=== PATIENT | female | born 2000 | race Caucasian/White ===

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

== ENCOUNTER 2019-04-15 16:54 | Emergency (ER) | payer MEDICAID ==
[~2019-04-15] VITALS: Ht 162.6 cm; Wt 60.0 kg
[~2019-04-15 16:54] MED LIST: BRIV50TA MT; KEPP250 MT
[2019-04-15] MEDS ORDERED: SODIUM CHLORIDE 0.9% 1,000 ML IV ONE (17:12)
[2019-04-15] MEDS ORDERED: LORAZEPAM 2MG/ML CPJ IV ONE ×4 (17:15→21:45)
[2019-04-15 17:26] LABS: BASOPHILS % 0.3 % (0.0-2.0); EOSINOPHILS % 1.9 % (0.0-5.0); HEMATOCRIT. 32.4 % (36.0-48.0); HEMOGLOBIN. 10.4 g/dL (12.0-16.0); LYMPHOCYTES % 20.6 % (20.0-50.0); MEAN CORPUSCULAR HEMOGLOBIN 24.6 pg (28.0-32.0); MEAN CORPUSCULAR VOLUME 76.6 fL (81.0-99.0); MONOCYTES % 9.3 % (2.0-8.0); NEUTROPHILS % 67.9 % (40.0-76.0); PLATELET 251 x1000/uL (130-400); RED BLOOD CELL COUNT 4.23 mill/uL (4.2-5.4); RED CELL DISTRIBUTION WIDTH 15.8 % (11.6-14.6)
[2019-04-15 17:28] LABS: CHLORIDE 108 mEq/L (98-107)
[2019-04-15 17:29] LABS: HCG SCREEN NEGATIVE
[2019-04-15 17:33] LABS: ETHANOL BLOOD < 10 mg/dL
[2019-04-15 17:37] LABS: CREATINE KINASE 67 IU/L (26-192)
[2019-04-15 18:00] LABS: CARBAMAZEPINE < 0.5 ug/mL (4-12); PHENOBARBITAL < 2.1 ug/mL (15.0-40.0); VALPROIC ACID < 3.0 ug/mL (50-100)
[2019-04-15] MEDS ORDERED: LEVETIRACETAM 500MG PREMIX 100 ML IV ONE (18:15)
[2019-04-15 23:51] LABS: CLARITY URINE CLEAR (CLEAR); COLOR URINE YELLOW (YELLOW); KETONES URINE 2+ (NEGATIVE); LEUKOCYTE ESTERASE URINE 1+ (NEGATIVE); NITRITE URINE NEGATIVE (NEGATIVE); OCCULT BLOOD URINE 1+ (NEGATIVE); PROTEIN URINE NEGATIVE (NEGATIVE)
[2019-04-16] MEDS ORDERED: CEFTRIAXONE 1 G PREMIX 50 ML IV ONE (00:15)
[2019-04-16 00:17] LABS: *AMPHETAMINES SCREEN URINE NEGATIVE (NEGATIVE); *BARBITURATES SCREEN URINE NEGATIVE (NEGATIVE); *BENZODIAZEPINES SCREEN URINE NEGATIVE (NEGATIVE)
[2019-04-16 00:18] LABS: *COCAINE SCREEN URINE NEGATIVE (NEGATIVE); CANNABINOID URINE SCREEN NEGATIVE (NEGATIVE); METHADONE URINE SCREEN NEGATIVE (NEGATIVE); PHENCYCLIDINE URINE SCREEN NEGATIVE (NEGATIVE)
[2019-04-16 00:20] VITALS: BP 102/63
[2019-04-16 00:28] LABS: OPIATES URINE SCREEN NEGATIVE (NEGATIVE)
== END 2019-04-16 05:37 | disposition home or self-care (01) ==
LOC: ER 16:54
DX: R56.9 Unspecified convulsions (principal); N39.0 Urinary tract infection, site not specified; K08.89 Other specified disorders of teeth and supporting structures; R62.50 Unspecified lack of expected normal physiological development in childhood; Z79.899 Other long term (current) drug therapy
CPT/HCPCS: 36415; 70450; 71045; 72125; 80053; 80156; 80165; 80184; 80185; 80305; 80320; 81003; 82140; 82550; 84443; 84703; 85025; 87077; 87086; 87186; 93005; 96365; 96366; 96375; 96376; 99284; J0696; J1953; J2060; J7030; Z7610; G0480

== ENCOUNTER 2023-10-08 04:57 | Emergency (ER) | payer MEDICAID ==
[~2023-10-08] VITALS: Ht 188 cm; Wt 54.0 kg
[2023-10-08 04:58] VITALS: O2SAT 99
[2023-10-08] MEDS ORDERED: SODIUM CHLORIDE 0.9% 1,000 ML IV ONE (05:30)
[2023-10-08] MEDS ORDERED: LEVETIRACETAM 500MG PREMIX 100 ML IV ONE (05:30)
[2023-10-08 05:55] LABS: BASOPHILS % 0.5 % (0.0-2.0); DIFFERENTIAL COMMENT 0; EOSINOPHILS % 0.2 % (0.0-5.0); HEMATOCRIT. 34.5 % (36.0-48.0); HEMOGLOBIN. 11.2 g/dL (12.0-16.0); LYMPHOCYTES % 8.1 % (20.0-50.0); MEAN CORPUSCULAR HEMOGLOBIN 24.8 pg (28.0-32.0); MEAN CORPUSCULAR HGB CONC 32.4 g/dL (31.0-37.0); MEAN CORPUSCULAR VOLUME 76.7 fL (81.0-99.0); MONOCYTES % 10.1 % (2.0-8.0); NEUTROPHILS % 81.1 % (40.0-76.0); PLATELET 290 x1000/uL (130-400); RED CELL DISTRIBUTION WIDTH 17.5 % (11.6-14.6); WHITE BLOOD COUNT 4.5 x1000/uL (4.5-11.0)
[2023-10-08 05:57] LABS: ALANINE AMINOTRANSFERASE 16 IU/L (10-49); ALBUMIN 4.5 g/dL (3.2-4.8); ASPARTATE AMINOTRANSFERASE 19 IU/L (<34); BILIRUBIN TOTAL 0.5 mg/dL (0.1-1.0); CALCIUM 9.5 mg/dL (8.7-10.4); CARBON DIOXIDE 16 mEq/L (21-32); CHLORIDE 106 mEq/L (98-107); CREATINE KINASE 97 IU/L (34-145); CREATININE 0.8 mg/dL (0.6-1.0); GLUCOSE 101 mg/dL (70-105); PROTEIN TOTAL 7.4 g/dL (6.0-8.3); SODIUM 140 mEq/L (136-145)
[2023-10-08 06:01] LABS: ETHANOL BLOOD < 10 mg/dL (<10); UREA NITROGEN BLOOD < 5 mg/dL (9-23)
[2023-10-08 06:18] LABS: HCG SCREEN NEGATIVE
[2023-10-08] MEDS ORDERED: KEPP500 MT (08:10)
[2023-10-08 08:40] VITALS: BP 98/60; PULSE 96; RESP 18; TEMP 97.9
== END 2023-10-08 10:14 | disposition home or self-care (01) ==
LOC: ER 04:57
DX: R56.9 Unspecified convulsions (principal); Z98.890 Other specified postprocedural states
CPT/HCPCS: 80053; 80320; 82550; 84703; 85025; 36415; 96365; 99285; J1953; J7030; Z7610; G0480

== ENCOUNTER 2025-07-08 14:48 | Inpatient (IN) | payer MEDICAID ==
[~2025-07-08] VITALS: Ht 154.9 cm; Wt 40.4 kg
[~2025-07-08 14:48] MED LIST changes: +KEPP500 MT
[2025-07-08 14:52] VITALS: O2SAT 97
[2025-07-08 15:56] LABS: BASOPHILS % 0.5 % (0.0-2.0); EOSINOPHILS % 0.4 % (0.0-5.0); HEMATOCRIT. 29.4 % (36.0-48.0); HEMOGLOBIN. 9.9 g/dL (12.0-16.0); LYMPHOCYTES % 10.3 % (20.0-50.0); MEAN PLATELET VOLUME 7.9 fl (7.4-10.4); MONOCYTES % 10.7 % (2.0-8.0); NEUTROPHILS % 78.1 % (40.0-76.0); PLATELET 211 x1000/uL (130-400); RED BLOOD CELL COUNT 3.68 mill/uL (4.2-5.4); RED CELL DISTRIBUTION WIDTH 16.0 % (11.6-14.6)
[2025-07-08 15:58] LABS: INR 1.0
[2025-07-08 16:00] LABS: HCG SCREEN NEGATIVE
[2025-07-08 16:03] LABS: CREATININE 0.6 mg/dL (0.6-1.0); ETHANOL BLOOD < 10 mg/dL (<10); TROPONIN I HIGH SENSITIVITY < 4 ng/L (3.0-34); UREA NITROGEN BLOOD 6 mg/dL (9-23)
[2025-07-08 16:05] LABS: ASPARTATE AMINOTRANSFERASE 15 IU/L (<34); BILIRUBIN DIRECT 0.1 mg/dL (<=3.0); BILIRUBIN TOTAL 0.3 mg/dL (0.1-1.0); PROTEIN TOTAL 6.6 g/dL (6.0-8.3)
[2025-07-08] MEDS: LEVETIRACETAM 500MG PREMIX 100 ML IV ONE (16:33)
[2025-07-08] MEDS: SODIUM CHLORIDE 0.9% 1,000 ML IV ONE (16:33)
[2025-07-08] MEDS: TETANUS, DIPHTHERIA, PERTUSSIS VAC/PF 0.5ML (>10YR OLD) IM ONE (17:30)
[2025-07-08] MEDS ORDERED: ONDANSETRON HCL 4MG/2ML INJ IV PRN (19:00)
[2025-07-08] MEDS ORDERED: MAGNESIUM/ALUMINUM HYDROXIDE/SIMETHICONE 30ML UDC PO PRN (19:00)
[2025-07-08] MEDS ORDERED: ACETAMINOPHEN 325MG TABLET PO PRN (19:00)
[2025-07-08] MEDS ORDERED: HYDROCODONE/ACETAMINOPHEN 5/325MG TABLET PO PRN (19:00)
[2025-07-08] MEDS ORDERED: CLONIDINE 0.1MG TABLET PO PRN (19:00)
[2025-07-08] MEDS ORDERED: ZOLPIDEM TARTRATE 5MG TABLET PO PRN (19:00)
[2025-07-08] MEDS: SODIUM CHLORIDE 0.9% 1,000 ML IV SCH (19:11)
[2025-07-08] MEDS ORDERED: SODIUM CHLORIDE 0.9% 1,000 ML IV ONE (19:15)
[2025-07-08] MEDS: SODIUM CHLORIDE 0.9% 2,000 ML IV ONE (19:40)
[2025-07-08] MEDS ORDERED: LEVETIRACETAM 1,000MG in NACL 100ML PREMIX IV SCH (21:00)
[2025-07-08] MEDS: KCL 10MEQ/50ML PREMIX 50 ML IV SCH (21:30)
[2025-07-08] MEDS: KCL 10MEQ/50ML PREMIX 50 ML IV ONE (21:30)
[2025-07-08 22:30] VITALS: BP 101/56; PULSE 96; RESP 20; TEMP 36.2512
[2025-07-09] VITALS: BP 101/56; PULSE 86; RESP 20; TEMP 36.2; O2SAT 96
[2025-07-09 04:00] VITALS: BP 85/35; PULSE 76; RESP 20; TEMP 36.2; O2SAT 100
[2025-07-09] MEDS: LORAZEPAM 2MG/ML UD SYRINGE IV PRN (05:22)
[2025-07-09 07:41] LABS: CREATININE 0.5 mg/dL (0.6-1.0); UREA NITROGEN BLOOD < 5 mg/dL (9-23)
[2025-07-09 07:50] LABS: BASOPHILS % 0.5 % (0.0-2.0); EOSINOPHILS % 2.7 % (0.0-5.0); HEMATOCRIT. 31.7 % (36.0-48.0); HEMOGLOBIN. 10.3 g/dL (12.0-16.0); LYMPHOCYTES % 27.7 % (20.0-50.0); MEAN PLATELET VOLUME 8.1 fl (7.4-10.4); MONOCYTES % 10.3 % (2.0-8.0); NEUTROPHILS % 58.8 % (40.0-76.0); PLATELET 179 x1000/uL (130-400); RED BLOOD CELL COUNT 3.88 mill/uL (4.2-5.4); RED CELL DISTRIBUTION WIDTH 16.0 % (11.6-14.6)
[2025-07-09 08:00] VITALS: BP 92/56; PULSE 74; RESP 18; TEMP 36.6; O2SAT 100
[2025-07-09] MEDS: PANTOPRAZOLE SODIUM 40 MG/VIAL IV SCH (09:52)
[2025-07-09] MEDS: LEVETIRACETAM 1000MG PREMIX 100 ML IV SCH (09:52)
[2025-07-09] MEDS: ENOXAPARIN 40MG/0.4ML SYR SUBCUT SCH (09:53)
[2025-07-09 12:00] VITALS: BP 98/55; PULSE 81; RESP 18; TEMP 36.6; O2SAT 100
[2025-07-09] MEDS: POTASSIUM CHLORIDE 20MEQ TABLET SR PO NR (13:46)
[2025-07-09 16:00] VITALS: BP 96/58; PULSE 80; RESP 18; TEMP 36.7; O2SAT 100
[2025-07-09 20:00] VITALS: BP 108/69; PULSE 102; RESP 20; TEMP 36.4; O2SAT 100
[2025-07-09] MEDS: NEOMY SULF/BACITRAC ZN/POLY OINT 28GM TOP SCH (21:07)
[2025-07-10] VITALS: BP 100/53; PULSE 84; RESP 20; TEMP 36.8; O2SAT 100
[2025-07-10 04:00] VITALS: BP 100/54; PULSE 76; RESP 18; TEMP 36.8; O2SAT 98
[2025-07-10 06:28] LABS: BASOPHILS % 0.6 % (0.0-2.0); EOSINOPHILS % 3.4 % (0.0-5.0); HEMATOCRIT. 31.3 % (36.0-48.0); HEMOGLOBIN. 10.4 g/dL (12.0-16.0); LYMPHOCYTES % 32.2 % (20.0-50.0); MEAN PLATELET VOLUME 7.9 fl (7.4-10.4); MONOCYTES % 7.4 % (2.0-8.0); NEUTROPHILS % 56.4 % (40.0-76.0); PLATELET 202 x1000/uL (130-400); RED BLOOD CELL COUNT 3.89 mill/uL (4.2-5.4); RED CELL DISTRIBUTION WIDTH 16.3 % (11.6-14.6)
[2025-07-10 07:18] LABS: CREATININE 0.5 mg/dL (0.6-1.0); UREA NITROGEN BLOOD < 5 mg/dL (9-23)
[2025-07-10 08:07] VITALS: BP 85/49; PULSE 76; RESP 18; TEMP 36.2; O2SAT 100
[2025-07-10] MEDS ORDERED: LEVE100023 MT (10:06)
[2025-07-10 10:27] VITALS: BP 91/55; PULSE 76; RESP 18; TEMP 97.1
[2025-07-10 11:00] VITALS: BP 91/55; PULSE 76; RESP 18; O2SAT 100
[2025-07-10 11:43] VITALS: BP 85/53; PULSE 88; RESP 20; TEMP 36.2; O2SAT 100
== END 2025-07-10 14:52 | disposition home or self-care (01) | DRG 53 ==
LOC: ER 14:48 → EDBEDREQ 15:21 → ENRESERV 17:37 → CANRESERV 17:37 → ENRESERV 21:01 → 7WST 22:30
PROVIDERS: ADMIT Internal Medicine; ATTEND Internal Medicine
PROC: 0HQ1XZZ Repair Face Skin, External Approach (ICD-10-PCS; principal; 2025-07-08)
DX: G40.409 Other generalized epilepsy and epileptic syndromes, not intractable, without status epilepticus (principal); E46 Unspecified protein-calorie malnutrition; D64.9 Anemia, unspecified; E86.0 Dehydration; E87.6 Hypokalemia; S01.81XA Laceration without foreign body of other part of head, initial encounter; F84.0 Autistic disorder; S60.511A Abrasion of right hand, initial encounter; S60.512A Abrasion of left hand, initial encounter; F79 Unspecified intellectual disabilities; Z79.899 Other long term (current) drug therapy; X58.XXXA Exposure to other specified factors, initial encounter; Y93.89 Activity, other specified; Y92.89 Other specified places as the place of occurrence of the external cause; Y99.8 Other external cause status
CPT/HCPCS: 12011; 36415; 71045; 73130; 80048; 80076; 80320; 84443; 84484; 84703; 85025; 90715; 93005; 93970; 99285; A4606; J1650; J1953; J2060; J2470; J3480; J7030; G0480